=== PATIENT | female | born 1965 | race Asian ===

== ENCOUNTER 2018-12-06 07:31 | Day surgery (SDC) | payer OTHER ==
[~2018-12-06] VITALS: Ht 165.1 cm; Wt 76.6 kg
[~2018-12-06 07:31] MED LIST: ALLERGY MED; CHOLESTEROL MED
[2018-12-06 08:23] VITALS: Ht 165.1 cm; Wt 76.6 kg
[2018-12-06 08:38] VITALS: BP 127/72; PULSE 60; RESP 18
[2018-12-06 09:55] VITALS: BP 115/71; PULSE 55; RESP 18
== END 2018-12-06 11:41 | disposition home or self-care (01) ==
LOC: GIL 07:31
PROVIDERS: ATTEND Internal Medicine Gastroenterology
DX: Z12.11 Encounter for screening for malignant neoplasm of colon (principal); K64.8 Other hemorrhoids; K64.4 Residual hemorrhoidal skin tags; K29.30 Chronic superficial gastritis without bleeding; K25.7 Chronic gastric ulcer without hemorrhage or perforation
CPT/HCPCS: 88305; 88312